=== PATIENT | male | born 2000 | race Caucasian/White ===

== ENCOUNTER 2018-04-24 09:03 | Day surgery (SDC) | payer OTHER ==
[2018-04-24] MEDS ORDERED: PROPOFOL 200 MG/20 ML VIAL As Ordered ×2 (09:50→11:05)
[2018-04-24] MEDS ORDERED: LIDOCAINE 2% INJ 100 MG/5 ML SDV (FOR ANES.) As Ordered (09:50)
[2018-04-24] MEDS ORDERED: dexameTHASONE 4 MG/ML 1ML VIAL (J1100) As Ordered ×2 (09:51)
[2018-04-24] MEDS ORDERED: ONDANSETRON 4MG/2ML VIAL (J2405) As Ordered (09:51)
[2018-04-24] MEDS ORDERED: MIDAZOLAM INJ 2 MG/2 ML VIAL (J2250) As Ordered (09:52)
[2018-04-24] MEDS ORDERED: fentaNYL 250 MCG/5 ML INJECTION (J3010) As Ordered (09:52)
[2018-04-24] MEDS ORDERED: LR 1,000 ML IV ×2 (10:15→12:45)
[2018-04-24] MEDS ORDERED: SUCCINYLCHOLINE 100 MG/5 ML SYRINGE (J0330) As Ordered (11:05)
[2018-04-24] MEDS ORDERED: ESMOLOL INJ 100MG/10ML VIAL As Ordered (11:08)
[2018-04-24] MEDS: BUPIVACAINE HCL 0.5% 10 ML VIAL As Ordered (11:54)
[2018-04-24] MEDS ORDERED: ALBUTEROL SULFATE 2.5 MG/0.5 ML INH NEB SOLN As Ordered (12:24)
[2018-04-24] MEDS: ALBUTEROL SULFATE 2.5 MG/0.5 ML INH NEB SOLN INH (12:26)
[2018-04-24] MEDS ORDERED: MEPERIDINE INJ 25 MG/ML VIAL (J2175) As Ordered (12:29)
[2018-04-24] MEDS: MEPERIDINE INJ 25 MG/ML VIAL (J2175) IV ×2 (12:33→12:38)
[2018-04-24] MEDS ORDERED: IBUPROFEN 800 MG TAB PO (12:45)
[2018-04-24] MEDS ORDERED: METOCLOPRAMIDE INJ 10MG/2ML VIAL (J2765) IV (12:45)
[2018-04-24] MEDS ORDERED: fentaNYL 100 MCG/2 ML INJECTION (J3010) IV (12:45)
[2018-04-24] MEDS ORDERED: ONDANSETRON 4MG/2ML VIAL (J2405) IV (12:45)
[2018-04-24] MEDS ORDERED: PERCOCET 5MG/325MG TAB PO ×2 (12:45)
[2018-04-24] MEDS: HYDROcodone/APAP LIQUID 7.5-325MG 15ML UDC (LORTAB ELIXIR) PO (12:56)
== END 2018-04-24 14:20 | disposition home or self-care (01) ==
LOC: M SDC 09:03
DX: J35.01 Chronic tonsillitis (principal); E66.9 Obesity, unspecified; Z68.37 Body mass index [BMI] 37.0-37.9, adult; Z72.0 Tobacco use
CPT/HCPCS: 42826

== ENCOUNTER 2021-07-22 11:53 | Emergency (ER) | payer BC, OTHER ==
[~2021-07-22] VITALS: Ht 177.8 cm; Wt 145.0 kg
[2021-07-22 12:46] LABS: BASO % 0.5 % (0.0-1.0); EOS # 0.1 10^3/uL (0.0-0.5); EOS % 1.5 % (0.0-3.0); HEMATOCRIT 49.6 % (42.0-52.0); HEMOGLOBIN 16.9 g/dl (13.5-17.5); LYMPH # 2.6 10^3/uL (1.5-5.0); LYMPH % 33.2 % (24.0-44.0); MEAN CORPUSCULAR HGB CONC 34.1 g/dl (32.0-36.5); MEAN CORPUSCULAR VOLUME 82.1 fl (80.0-96.0); MONO # 0.8 10^3/uL (0.0-0.8); MONO % 10.4 % (2.0-8.0); NEUTROPHILS # 4.3 10^3/uL (1.5-8.5); NEUTROPHILS % 54.3 % (36.0-66.0); PLATELET COUNT, AUTOMATED 367 10^3/uL (150-450); RED BLOOD COUNT 6.04 10^6/uL (4.30-6.10); WHITE BLOOD COUNT 7.9 10^3/uL (4.0-10.0)
[2021-07-22 13:22] LABS: ALBUMIN 4.1 GM/DL (3.2-5.2); BILIRUBIN,DIRECT 0.4 MG/DL (0.0-0.2); BILIRUBIN,TOTAL 1.7 MG/DL (0.2-1.0); TOTAL PROTEIN 8.4 GM/DL (6.4-8.2)
[2021-07-22 14:14] VITALS: BP 162/77
== END 2021-07-22 14:15 | disposition home or self-care (01) ==
LOC: M ED 11:53
DX: R10.9 Unspecified abdominal pain (principal); R19.7 Diarrhea, unspecified; K76.0 Fatty (change of) liver, not elsewhere classified; K82.8 Other specified diseases of gallbladder; F10.10 Alcohol abuse, uncomplicated; F12.10 Cannabis abuse, uncomplicated

== ENCOUNTER → 2022-03-26 | Outpatient (CLI) | payer BC ==
[~2022-03-26] MED LIST: ISOVUE-370 76% 100ML VIAL As Ordered ONE
== END ==
LOC: M RAD 07:51
PROVIDERS: ATTEND Otolaryngology
DX: R22.1 Localized swelling, mass and lump, neck (principal); J31.0 Chronic rhinitis

== ENCOUNTER 2023-09-30 06:56 | Emergency (ER) | payer BC ==
[~2023-09-30] VITALS: Ht 177.8 cm; Wt 139.7 kg
[2023-09-30] MEDS ORDERED: AMOX875T2 PO (08:42)
[2023-09-30 09:05] VITALS: BP 143/84; TEMP 98.1; O2SAT 97
== END 2023-09-30 09:07 | disposition home or self-care (01) ==
LOC: M ED 06:56
DX: L03.315 Cellulitis of perineum (principal); B00.9 Herpesviral infection, unspecified